=== PATIENT | female | born 1955 | race African-American/Black ===

== ENCOUNTER 2016-12-26 03:49 | Emergency (ER) | payer MEDICAID ==
[~2016-12-26] VITALS: Ht 154.9 cm; Wt 80.0 kg
[2016-12-26] MEDS ORDERED: KETOROLAC 30MG/ML VIAL IV STA (07:57)
[2016-12-26 08:27] LABS: BASOPHILS % 0.6 % (0.0-2.0); EOSINOPHILS % 3.5 % (0.0-5.0); HEMATOCRIT. 38.6 % (36.0-48.0); HEMOGLOBIN. 12.6 g/dL (12.0-16.0); MEAN CORPUSCULAR HEMOGLOBIN 23.9 pg (28.0-32.0); MEAN CORPUSCULAR VOLUME 73.2 fL (81.0-99.0); MEAN PLATELET VOLUME 8.7 fl (7.4-10.4); MONOCYTES % 5.6 % (2.0-8.0); NEUTROPHILS % 62.3 % (40.0-76.0); PLATELET 283 x1000/uL (130-400); RED BLOOD CELL COUNT 5.28 mill/uL (4.2-5.4)
[2016-12-26 08:36] LABS: CHLORIDE 105 mEq/L (98-107); PROTHROMBIN TIME 10.4 sec (9.4-11.6)
[2016-12-26 08:45] LABS: CARBON DIOXIDE 29 mEq/L (21-32); TROPONIN I < 0.02 ng/mL (0.00-0.04)
[2016-12-26 10:15] VITALS: BP 188/88
== END 2016-12-26 10:43 | disposition home or self-care (01) ==
LOC: ER 07:46
DX: S46.912A Strain of unspecified muscle, fascia and tendon at shoulder and upper arm level, left arm, initial encounter (principal); I10 Essential (primary) hypertension; X58.XXXA Exposure to other specified factors, initial encounter; Y93.89 Activity, other specified; Y92.89 Other specified places as the place of occurrence of the external cause; Y99.8 Other external cause status
CPT/HCPCS: 36415; 71010; 80053; 83880; 84484; 85025; 85610; 93005; 96374; 99285; J1885; Z7610

== ENCOUNTER 2017-04-10 22:24 | Emergency (ER) | payer MEDICAID ==
[~2017-04-10] VITALS: Ht 157.5 cm; Wt 80.0 kg
[2017-04-11] MEDS ORDERED: KETOROLAC 30MG/ML VIAL IV STA (01:06)
[2017-04-11 01:31] LABS: BASOPHILS % 0.7 % (0.0-2.0); EOSINOPHILS % 3.4 % (0.0-5.0); HEMATOCRIT. 37.2 % (36.0-48.0); HEMOGLOBIN. 11.9 g/dL (12.0-16.0); LYMPHOCYTES % 36.1 % (20.0-50.0); MEAN CORPUSCULAR HEMOGLOBIN 23.5 pg (28.0-32.0); MEAN CORPUSCULAR VOLUME 73.4 fL (81.0-99.0); MEAN PLATELET VOLUME 8.5 fl (7.4-10.4); MONOCYTES % 6.1 % (2.0-8.0); NEUTROPHILS % 53.7 % (40.0-76.0); PLATELET 288 x1000/uL (130-400); RED BLOOD CELL COUNT 5.07 mill/uL (4.2-5.4); RED CELL DISTRIBUTION WIDTH 14.9 % (11.6-14.6)
[2017-04-11 01:35] LABS: CHLORIDE 105 mEq/L (98-107)
[2017-04-11 01:42] LABS: CARBON DIOXIDE 28 mEq/L (21-32)
[2017-04-11] MEDS ORDERED: MORPHINE SULFATE 4 MG/ML CPJ (NOT FOR IM USE) IV ONE (03:00)
[2017-04-11] MEDS ORDERED: MORPHINE SULFATE 10 MG/ML CPJ IV SCH (03:30)
[2017-04-11] MEDS ORDERED: MORPHINE SULFATE 10 MG/ML CPJ IV ONE (03:30)
[2017-04-11 07:05] VITALS: BP 165/94
== END 2017-04-11 07:05 | disposition home or self-care (01) ==
LOC: ER 23:25
DX: M25.511 Pain in right shoulder (principal); I10 Essential (primary) hypertension; Z88.0 Allergy status to penicillin
CPT/HCPCS: 36415; 71010; 72040; 80048; 81025; 85025; 93005; 96374; 99285; J1885; Z7610